=== PATIENT | male | born 1965 | race Two or more races ===

== ENCOUNTER 2016-11-12 10:52 | Emergency (ER) | payer OTHER ==
[2016-11-12 11:02] VITALS: TEMP 98.1; BMI 36.8
--- NOTE | 2016-11-12 11:36 | PDOC ---
Attending Attestation - Resident Resident Name: ChidiPatricio - ED Attending Attestation I have performed the following: I have examined & evaluated the patient, The case was reviewed & discussed with the resident, I agree w/resident's findings & plan, Exceptions are as noted - HPI HPI: 51 yo M history DM, HCV, HTN p/w 3 week history of abdominal pain. Pain is diffuse, associated with N/V/D. He states that he has had difficulty eating because nothing stays down. He has been able to drink dejon denzel, but not much more. He has not been taking his metformin and BP meds as prescribed. He has not been able to check his blood sugar because he is out of test strips, and insurance would not cover additional strips. He started on methadone 3 months ago. - Physicial Exam PE: GENERAL: Awake, alert, and fully oriented, in no acute distress HEAD: No signs of trauma EYES: PERRLA, EOMI, sclera anicteric, conjunctiva clear ENT: Auricles normal inspection, hearing grossly normal, nares patent, oropharynx clear without exudates. Moist mucosa NECK: Normal ROM, supple, no lymphadenopathy, JVD, or masses LUNGS: Breath sounds equal, clear to auscultation bilaterally. No wheezes, and no crackles HEART: Regular rate and rhythm, normal S1 and S2, no murmurs, rubs or gallops ABDOMEN: Soft, diffuse mod tenderness, normoactive bowel sounds. No guarding, no rebound. No masses EXTREMITIES: Normal range of motion, no edema. No clubbing or cyanosis. No cords, erythema, or tenderness NEUROLOGICAL: Cranial nerves II through XII grossly intact. Normal speech, normal gait SKIN: Warm, Dry, normal turgor, no rashes or lesions noted. - Medical Decision Making Patient presents with 3 week history of abdominal pain with intermittent N/V/D. DDx includes UTI/pyelonephritis, gastroparesis, colitis, DKA. Will send labs, UA. Will give IVF, antiemetics. Will likely obtain CT to further evaluate.
--- NOTE | 2016-11-12 11:48 | PDOC ---
History of Present Illness - General Chief Complaint: Pain, Acute Stated Complaint: VOMITING. ABD PAIN Time Seen by Provider: 11/12/16 11:17 History Source: Patient Exam Limitations: No Limitations - History of Present Illness Travel History: No Initial Comments: Patient is a 51 year old male with significant PMH of HTN, DM, Hepatitis C, currently on a methadone program who presents to ED with diarrhea, vomiting & diffuse abdominal pain for last 2-3 weeks. He states he had some friend chicken 3 weeks ago and developed diarrhea & abdominal pain. He later started vomiting as well and all 3 issues have been intermittent for the last 3 weeks. Some days are worse than others. Vomit is nonbloody but occasionally bilious in appearance. Diarrhea is nonbloody as well. He denies any sick contacts or changes in his diet. ROS is negative for CHRISTIAN, CP, SOB or dizziness. He last used heroine 3 months ago. He stopped taking metformin & his antihypertensive medications about 3 weeks ago as well because he didnt like their side effects. Past History - Travel Traveled outside of the country in the last 30 days: No Close contact w/someone who was outside of country & ill: No - Past Medical History Allergies/Adverse Reactions: Allergies Allergy/AdvReac Type Severity Reaction Status Date / Time No Known Allergies Allergy Verified 11/12/16 10:57 Home Medications: Ambulatory Orders Methadone HCl [Dolophine HCl] 50 mg PO DAILY 10/03/16 Ondansetron [Zofran -] 8 mg PO TID PRN #21 tablet 11/12/16 Asthma: No Cancer: No COPD: No Diabetes: Yes (oral meds) HTN: Yes Hypercholesterolemia: Yes Liver Disease: Yes (fatty liver,HEP C) Seizures: No Thyroid Disease: No - Surgical History Neurologic Surgery: Yes (2016 implanted back neurostimulator) Orthopedic Surgery: Yes (back - 2013, fusion 2016; right knee arthroscopy) - Family Disease History Family Disease History: Diabetes: Mother (HTN), Heart Disease: Mother - Psycho/Social/Smoking Cessation Hx Anxiety: No Suicidal Ideation: No Smoking Status: No Smoking History: Former smoker Have you smoked in the past 12 months: No Number of Cigarettes Smoked Daily: 0 If you are a former smoker, when did you quit?: 20 years ago Information on smoking cessation initiated: Yes Hx Alcohol Use: No Drug/Substance Use Hx: Yes (HX OF HEROIN, stopped 3 months ago) Substance Use Type: Cocaine, Heroin Hx Substance Use Treatment: Yes ([facility] ) Patient Lives Alone: No Lives with/in: spouse/SO Review of Systems - Review of Systems Able to Perform ROS?: Yes Is the patient limited Bengali proficient: No ABD/GI: Yes: Diarrhea, Nausea, Vomiting, Other (Diffuse abdominal pain) Musculoskeletal: Yes: Back Pain *Physical Exam - Vital Signs Last Vital Signs Temp Pulse Resp BP Pulse Ox 98.1 F 76 18 155/104 98 11/12/16 10:58 11/12/16 10:58 11/12/16 10:58 11/12/16 10:58 11/12/16 10:58 - Physical Exam General Appearance: Yes: Appropriately Dressed, Apparent Distress, Obese HEENT: positive: EOMI, NICOLE, Normal ENT Inspection Neck: positive: Trachea midline, Supple Respiratory/Chest: positive: Lungs Clear, Normal Breath Sounds Cardiovascular: positive: Regular Rhythm, Regular Rate, S1, S2 Gastrointestinal/Abdominal: positive: Normal Bowel Sounds, Tender (diffusely TTP ), Soft Musculoskeletal: positive: Normal Inspection Extremity: positive: Normal Inspection, Normal Range of Motion Integumentary: positive: Normal Color, Dry, Warm Neurologic: positive: speeder frame tender II-XII NML intact, Fully Oriented, Alert, Normal Mood/ Affect, Normal Response, Motor Strength 5/5 ED Treatment Course - LABORATORY CBC & Chemistry Diagram: 11/12/16 12:40 11/12/16 12:40 - ADDITIONAL ORDERS Additional order review: 11/12/16 12:00 Ordered CBC, CMP, Acetone, UA/Ur cx. Ordered Zofran and IVF as well. Pening response to fluids and lab findings, will likely require CT of Abdomen later. 11/12/16 13:29 All lab findings thus far have been within normal limits. CT Abdomen w/ contrast ordered. 11/12/16 14:[address] shows Ileus w/o signs of SBO. Patient instructed to followup with GI specialist for likely endoscopy/colonoscopy workup of ileus. Sent home with prescription for Zofran to help with nausea. Instructed to follow low fat diet & avoid fast food. 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 Fluid-filled nondilated small bowel loops suggestive of ileus without evidence of small bowel obstruction No free air or free fluid in the abdomen and pelvis. Status post posterior fusion of L3 and L4 vertebral bodies. *DC/Admit/Observation/Transfer Diagnosis at time of Disposition: Ileus - Discharge Dispostion Disposition: HOME Condition at time of disposition: Improved Admit: No - Prescriptions Prescriptions: Ondansetron [Zofran -] 8 mg PO TID PRN #21 tablet PRN Reason: Nausea - Referrals Referrals: Juan Maloney NP [Primary Care Provider] - Hussein Lester MD [Staff Physician] - 1 week - Patient Instructions Printed Discharge Instructions: Ileus, DI for Ileus Additional Instructions: Schedule appointment with Dr Lester, GI specialist THIS WEEK. Take zofran for nausea, no more than 3x per day. Avoid fatty food!
[2016-11-12] MEDS ORDERED: ONDANSETRON 4 MG/2 ML VIAL IVPB ONE (12:01)
[2016-11-12] MEDS ORDERED: SODIUM CHLORIDE 1,000 ML IV STA (12:01)
[2016-11-12 12:51] LABS: BASOPHIL 0.4 % (0-2.0); EOSINOPHIL 1.3 % (0-4.5); MCH 29.6 pg (25.7-33.7); MEAN CELL VOLUME 87.1 fl (80-96); MEAN PLT VOLUME 8.5 fl (7.5-11.1); NEUTROPHILS 59.7 % (42.8-82.8); PLATELET COUNT 230 K/MM3 (134-434); WHITE BLOOD COUNT 5.1 K/mm3 (4.0-10.0)
[2016-11-12 12:57] LABS: URINE APPEARANCE SLCLOUDY; URINE BILIRUBIN NEGATIVE (NEGATIVE); URINE BLOOD NEGATIVE (NEGATIVE); URINE COLOR YELLOW; URINE GLUCOSE (UA) NEGATIVE (NEGATIVE); URINE KETONE NEGATIVE (NEGATIVE); URINE LEUK ESTERASE NEGATIVE (NEGATIVE); URINE NITRITE NEGATIVE (NEGATIVE); URINE PROTEIN NEGATIVE (NEGATIVE); URINE UROBILINOGEN NEGATIVE E.U./dl (0.2-1.0)
[2016-11-12] MEDS ORDERED: ONDANSETRON 4 MG/2 ML VIAL ONE (13:11)
[2016-11-12 13:12] LABS: ALBUMIN 3.7 g/dl (3.4-5.0); ALK PHOS 126 U/L (45-117); ANION GAP 8 (8-16); BILIRUBIN,TOTAL 0.5 mg/dL (0.2-1.0); CALCIUM 8.8 mg/dL (8.5-10.1); CO2 23 mmol/L (21-32); GLUCOSE,RANDOM 94 mg/dL (74-106); SGOT/AST 37 U/L (15-37); SGPT/ALT 57 U/L (12-78); TOT PROT 7.9 g/dl (6.4-8.2)
[2016-11-12 15:02] VITALS: BP 147/98; PULSE 90
== END 2016-11-12 15:02 | disposition home or self-care (01) ==
LOC: JER 10:52
PROC: 3E033GC Introduction of Other Therapeutic Substance into Peripheral Vein, Percutaneous Approach (ICD-10-PCS; principal; 2016-11-12)
PROC: 3E0337Z Introduction of Electrolytic and Water Balance Substance into Peripheral Vein, Percutaneous Approach (ICD-10-PCS; 2016-11-12)
DX: K56.7 Ileus, unspecified (principal); I10 Essential (primary) hypertension; E11.9 Type 2 diabetes mellitus without complications; Z79.84 Long term (current) use of oral hypoglycemic drugs; B18.2 Chronic viral hepatitis C
CPT/HCPCS: 36415; 74177-TC; 80053; 81003; 82009; 85025; 87086; 96361; 96374; 99283-25

== ENCOUNTER → 2019-07-01 | Outpatient (CLI) | payer OTHER | LOC: YHH 14:41 ==

== ENCOUNTER 2021-04-20 14:14 | Observation (INO) | payer OTHER ==
[2021-04-20] MEDS ORDERED: ONDANSETRON 4 MG/2 ML VIAL IVPUSH ONE (15:53)
[2021-04-20] MEDS ORDERED: morphine CARPU-JECT 4 MG/1 ML DISP.SYRIN IVPUSH ONE ×2 (15:53→18:00)
[2021-04-20] MEDS ORDERED: LACTATED RINGERS SOLUTION 1000 ML INFUS.BAG IV ONE (15:53)
[2021-04-20] MEDS ORDERED: morphine SULFATE 4 MG/ML VIAL ONE ×2 (16:13→18:05)
[2021-04-20] MEDS ORDERED: ONDANSETRON 4 MG/2 ML VIAL ONE (16:13)
[2021-04-20] MEDS ORDERED: DIPHTH,PERTUSS(ACELL),TET 0.5 ML DISP.SYRIN IM ONE ×2 (16:40→18:06)
[2021-04-20 17:06] LABS: BASO % 0.2 % (0-2.0); EOS % 0.7 % (0-4.5); HEMATOCRIT 39.4 % (35.4-49); LYMPH % 22.4 % (8-40); MCH 29.2 pg (25.7-33.7); MEAN CELL VOLUME 88.5 fl (80-96); MEAN PLT VOLUME 8.9 fl (7.5-11.1); MONO % 7.7 % (3.8-10.2); PLATELET COUNT 245 10^3/uL (134-434); RBC 4.45 M/mm3 (4.00-5.60); RDW 14.4 % (11.9-15.9); WHITE BLOOD COUNT 10.6 K/mm3 (4.0-10.0)
[2021-04-20 17:19] LABS: INR 0.97 (0.83-1.09); PROTHROMBIN TIME (PATIENT) 11.8 SEC (9.7-13.0)
[2021-04-20 17:22] LABS: ACTIVATED PTT 21.8 SECONDS (25.2-36.5)
[2021-04-20 17:24] LABS: URINE APPEARANCE CLEAR; URINE BILIRUBIN NEGATIVE (NEGATIVE); URINE COLOR YELLOW; URINE GLUCOSE (UA) NEGATIVE (NEGATIVE); URINE KETONE NEGATIVE (NEGATIVE); URINE LEUK ESTERASE NEGATIVE (NEGATIVE); URINE NITRITE NEGATIVE (NEGATIVE); URINE PROTEIN NEGATIVE (NEGATIVE)
[2021-04-20 17:27] LABS: CHLORIDE 105 mmol/L (98-107); SODIUM 138 mmol/L (136-145)
[2021-04-20 17:29] LABS: ALBUMIN 3.8 g/dl (3.4-5.0); ANION GAP 5 MMOL/L (8-16); BLOOD UREA NITROGEN 12.1 mg/dL (7-18); CALCIUM 9.1 mg/dL (8.5-10.1); CO2 29 mmol/L (21-32); GLUCOSE,RANDOM 66 mg/dL (74-106)
[2021-04-20 17:33] LABS: CREATININE 0.9 mg/dL (0.55-1.3); SGOT/AST 20 U/L (15-37); SGPT/ALT 26 U/L (13-61); TOT PROT 7.3 g/dl (6.4-8.2)
[2021-04-20 17:35] LABS: ALK PHOS 99 U/L (45-117); BILIRUBIN,TOTAL 0.2 mg/dL (0.2-1)
[2021-04-20] MEDS ORDERED: DEXTROSE 50%-WATER - 25 GM/50 ML VIAL IVPUSH ONE (17:48)
[2021-04-20] MEDS ORDERED: DEXTROSE 50%-WATER - 25 GM/50 ML VIAL ONE (18:06)
[2021-04-20] MEDS ORDERED: METHOCARBAMOL 500 MG TABLET PO ONE (18:16)
[2021-04-20] MEDS ORDERED: METHOCARBAMOL 500 MG TABLET ONE (18:48)
[2021-04-21] MEDS ORDERED: LIDOCAINE 5% TOPICAL PATCH TP ONE (00:28)
[2021-04-21] MEDS ORDERED: MORPHINE SULFATE 2 MG/ML VIAL IVPUSH PRN (00:30)
[2021-04-21] MEDS ORDERED: oxyCODONE HCL 5 MG TABLET PO PRN (00:30)
[2021-04-21 07:40] LABS: BASO % 0.4 % (0-2.0); EOS % 0.8 % (0-4.5); HEMATOCRIT 39.9 % (35.4-49); HEMOGLOBIN 13.2 GM/dL (11.7-16.9); LYMPH % 21.1 % (8-40); MCH 29.1 pg (25.7-33.7); MCHC 33.1 g/dl (32.0-35.9); MEAN PLT VOLUME 8.7 fl (7.5-11.1); MONO % 9.1 % (3.8-10.2); NEUT % 68.6 % (42.8-82.8); PLATELET COUNT 221 10^3/uL (134-434); RBC 4.53 M/mm3 (4.00-5.60); RDW 14.3 % (11.9-15.9)
[2021-04-21 07:56] LABS: ALBUMIN 3.5 g/dl (3.4-5.0); CALCIUM 8.7 mg/dL (8.5-10.1); MAGNESIUM 2.2 mg/dL (1.8-2.4)
[2021-04-21 07:57] LABS: BLOOD UREA NITROGEN 10.6 mg/dL (7-18)
[2021-04-21 07:59] LABS: PHOSPHOROUS 3.1 mg/dL (2.5-4.9)
[2021-04-21 08:01] LABS: BILIRUBIN,TOTAL 0.5 mg/dL (0.2-1); CREATININE 0.9 mg/dL (0.55-1.3); TOT PROT 7.2 g/dl (6.4-8.2)
[2021-04-21] MEDS ORDERED: LISINOPRIL 10 MG TABLET PO SCH (10:00)
[2021-04-21] MEDS ORDERED: ENOXAPARIN NA (PORCINE) 40 MG/0.4 ML DISP.SYRIN SQ SCH (10:00)
[2021-04-21] MEDS ORDERED: METHADONE 120 MG, METHADONE 15 MG PO SCH (11:30)
[2021-04-21] MEDS ORDERED: METHADONE HCL 5 MG TABLET ONE (11:32)
[2021-04-21] MEDS ORDERED: METHADONE HCL 40 MG DISPERSABLE TABLET ONE (11:32)
[2021-04-21] MEDS: ACETAMINOPHEN 1000 MG/100 ML VIAL (NON FORMULARY) IVPB SCH ×4 (11:41→18:48)
[2021-04-21] MEDS: INSULIN SLIDING SCALE (NOVOLOG) 1 VIAL SQ SCH ×3 (11:58→21:41)
[2021-04-21 13:33] VITALS: BMI 34.8
[2021-04-21] MEDS: GABAPENTIN 300 MG CAPSULE PO SCH ×3 (14:25→22:01)
[2021-04-21] MEDS: KETOROLAC TROMETHAMINE 15 MG/ML VIAL IVPUSH SCH ×4 (14:26→21:53)
[2021-04-21] MEDS: METHOCARBAMOL 500 MG TABLET PO SCH ×2 (14:57→22:40)
[2021-04-21] MEDS ORDERED: INSULIN (NOVOLOG) ASPART 100 UNITS/ML 10ML VIAL ONE (21:24)
[2021-04-21] MEDS ORDERED: LIDOCAINE PATCH REMOVAL MC SCH (22:00)
[2021-04-21 23:39] VITALS: BP 136/94; PULSE 52; TEMP 98.3
[2021-04-22] MEDS ORDERED: METHADONE 120 MG, METHADONE 15 MG PO SCH (11:15)
== END 2021-04-21 23:05 | disposition home or self-care (01) ==
LOC: JER 14:14 → UNDOADMOB 22:52 → JERBED 22:52 → OBSVTOIN 04-21 00:21 → INTOOBSV 04-21 00:21 → JERBED 04-21 09:36 → J6S 04-21 09:53 → JERBED 04-21 09:53
PROVIDERS: ADMIT Hospitalist; ATTEND Internal Medicine
PROC: 0HQ1XZZ Repair Face Skin, External Approach (ICD-10-PCS; principal; 2021-04-21)
PROC: 2W3QX1Z Immobilization of Right Lower Leg using Splint (ICD-10-PCS; 2021-04-21)
PROC: 3E033NZ Introduction of Analgesics, Hypnotics, Sedatives into Peripheral Vein, Percutaneous Approach (ICD-10-PCS; 2021-04-21)
PROC: 3E0333Z Introduction of Anti-inflammatory into Peripheral Vein, Percutaneous Approach (ICD-10-PCS; 2021-04-21)
PROC: 3E033GC Introduction of Other Therapeutic Substance into Peripheral Vein, Percutaneous Approach (ICD-10-PCS; 2021-04-21)
PROC: 3E013GC Introduction of Other Therapeutic Substance into Subcutaneous Tissue, Percutaneous Approach (ICD-10-PCS; 2021-04-21)
DX: S82.141A Displaced bicondylar fracture of right tibia, initial encounter for closed fracture (principal); S09.90XA Unspecified injury of head, initial encounter; S01.511A Laceration without foreign body of lip, initial encounter; V29.88XA Motorcycle rider (driver) (passenger) injured in other specified transport accidents, initial encounter; Y93.89 Activity, other specified; Y92.488 Other paved roadways as the place of occurrence of the external cause; I10 Essential (primary) hypertension; E11.9 Type 2 diabetes mellitus without complications; B18.2 Chronic viral hepatitis C; F17.210 Nicotine dependence, cigarettes, uncomplicated
CPT/HCPCS: 12011-25; 29515; 36415; 70450-TC; 70486-TC; 71045-TC-FY; 72125-TC; 73560-TC-RT-FY; 73590-TC-RT-FY; 73700-TC-RT; 76604; 76705-TC; 80053; 81003; 82550; 82553; 82962; 83735; 84100; 84484; 85025; 85610; 85730; 86850; 86900; 86901; 90715; 93005; 93010; 93308; 96372; 96374; 96375; 96376; 97116-GP; 97161-GP; 99285-25; C9803; G0378; J0131; U0003; U0005

== ENCOUNTER 2022-11-27 11:11 | Emergency (ER) | payer OTHER ==
[2022-11-27 11:16] VITALS: BP 162/88; PULSE 60; RESP 20; TEMP 98.5; BMI 36.5
[2022-11-27] MEDS ORDERED: KETOROLAC TROMETHAMINE 30 MG/1 ML VIAL IM ONE (12:17)
[2022-11-27] MEDS ORDERED: METHOCARBAMOL 500 MG TABLET PO ONE (12:17)
[2022-11-27] MEDS ORDERED: KETOROLAC TROMETHAMINE 30 MG/1 ML VIAL ONE (12:26)
[2022-11-27] MEDS ORDERED: METHOCARBAMOL 500 MG TABLET ONE (12:26)
== END 2022-11-27 14:36 | disposition left against medical advice (07) ==
LOC: JERFT 11:11
PROC: 3E0233Z Introduction of Anti-inflammatory into Muscle, Percutaneous Approach (ICD-10-PCS; principal; 2022-11-27)
DX: M54.50 Low back pain, unspecified (principal)
CPT/HCPCS: 72128-TC; 72131-TC; 99284-25